=== PATIENT | male | born 1980 ===

== ENCOUNTER 2017-11-08 20:36 | Emergency (ER) | payer SELFPAY ==
[2017-11-08 20:43] VITALS: BP 138/89; PULSE 61; RESP 18; TEMP 98.2; O2SAT 97
[2017-11-08] MEDS ORDERED: Ciprofloxacin 0.3% OPTH SOLN OD STA (21:02)
--- NOTE | 2017-11-08 21:22 | C.PDOC ---
History Of Present Illness 37-year-old male, presents to the emergency department with complaints of right ear pain since yesterday. patient feels like there is fluid in his ear, and noted some drainage today. Denies fever. Time Seen by Provider: 11/08/17 20:43 Chief Complaint (Nursing): ENT Problem History Per: Patient History/Exam Limitations: None Past Medical History Reviewed: Historical Data, Nursing Documentation, Vital Signs Vital Signs: Last Vital Signs Temp 98.2 F 11/08/17 20:41 Pulse 61 11/08/17 20:41 Resp 18 11/08/17 20:41 BP 138/89 11/08/17 20:41 Pulse Ox 97 11/08/17 21:32 - Medical History PMH: Denies: Chronic Kidney Disease Family History: States: No Known Family Hx - Social History Hx Alcohol Use: Yes Hx Substance Use: No - Immunization History Hx Tetanus Toxoid Vaccination: No Hx Influenza Vaccination: No Hx Pneumococcal Vaccination: No Review Of Systems Constitutional: Negative for: Fever, Chills ENT: Positive for: Ear Pain, Ear Discharge. Negative for: Nose Congestion, Throat Pain, Throat Swelling Physical Exam - Physical Exam Appears: Well, Non-toxic, No Acute Distress Skin: Normal Color, Warm, Dry, No Rash Head: Atraumatic, Normacephalic Eye(s): bilateral: Normal Inspection, PERRL, EOMI Ear(s): Left: Other (tragus tender, exudates, edema and erythema to canal; no mastoid tenderness), Right: Normal (no erythema) Nose: Normal, No Flaring, No Discharge Oral Mucosa: Moist Lips: Normal Appearing Throat: No Erythema, No Exudate Neck: Normal ROM, Supple Chest: Symmetrical Cardiovascular: Rhythm Regular, No Murmur Respiratory: Normal Breath Sounds, No Wheezing ED Course And Treatment O2 Sat by Pulse Oximetry: 97 (RA) Pulse Ox Interpretation: Normal Medical Decision Making Medical Decision Making: patient with right ear pain for 2 days and exam consistent with AOE, will treat with Cipro otic drops. Patient stable for discharge Rx given and follow up instructions. Disposition Counseled Patient/Family Regarding: Diagnosis, Need For Followup, Rx Given - Disposition Referrals: Johnathon Ray MD [Staff Provider] - Disposition: HOME/ ROUTINE Disposition Time: 21:20 Condition: GOOD Additional Instructions: aplicar gotas para los odos segn lo prescrito seguimiento con [facility] mdico / clnica o ENT Prescriptions: Ciprofloxacin/Hydrocortisone [Cipro Hc Otic Suspension] 1 drop AD BID #1 bottle Instructions: Outer Ear Infection Forms: [employer] (Namibian) Print Language: SWISS - POA Present On Arrival: None - Clinical Impression Clinical Impression: Otitis externa - Scribe Statement The provider has reviewed the documentation as recorded by the Scribe (Isis [email or web address]) All medical record entries made by the Scribe were at my direction and personally dictated by me. I have reviewed the chart and agree that the record accurately reflects my personal performance of the history, physical exam, medical decision making, and the department course for this patient. I have also personally directed, reviewed, and agree with the discharge instructions and disposition.
[2017-11-08] MEDS ORDERED: Ciprofloxacin 0.3% OPTH SOLN ONE (21:35)
== END 2017-11-08 21:35 | disposition home or self-care (01) ==
LOC: C.ER 20:36
DX: H60.91 Unspecified otitis externa, right ear (principal)